=== PATIENT | female | born 1950 | race Caucasian/White ===

== ENCOUNTER 2016-09-21 16:43 | Observation (INO) | payer OTHER ==
--- NOTE | 2016-09-21 16:50 | EDPHY ---
H & P HPI/ROS: CHIEF COMPLAINT: Chest pain HISTORY OF PRESENT ILLNESS: The patient is a 65 year old female who comes to the ED directly from post-op with chest pain. The patient had shoulder surgery today. When she woke up from anesthesia at 1515 she felt a felt like "there was an elephant on my chest". The cp continued during her postop recovery and lasted 20+ minutes. EKG was performed and is normal. She reports no other associated symptoms. She currently feels asymptomatic, The patient has had a normal stress test in the past. Cardiac risk factors negative. REVIEW OF SYSTEMS: A comprehensive 10 point review of systems is otherwise negative aside from elements mentioned in the history of present illness. Past Medical/Surgical History: Shoulder surgery today. Graves disease. Hemochromatosis. Social History: . Physical Exam: General Appearance: Alert, pleasant Eyes: Pupils equal and round, no conjunctival pallor or injection ENT, Mouth: Mucous membranes moist Neck: Normal inspection Respiratory: Lungs are clear to auscultation anteriorly Cardiovascular: Regular rate and rhythm Gastrointestinal: Abdomen is soft and non-tender Neurological: A&O, nonfocal, normal gait Skin: Warm and dry, no rash Extremities: left shoulder in sling Psychiatric: anxious Constitutional: Initial Vital Signs Heart Rate 78 09/21/16 17:02 Respiratory Rate 18 09/21/16 17:02 Blood Pressure 182/81 H 09/21/16 17:02 O2 Sat (%) 97 09/21/16 17:02 O2 Delivery Mode Nasal Cannula O2 (L/minute) 2 Allergies/Adverse Reactions: Sulfa (Sulfonamide Antibiotics) Allergy (Verified 09/21/16 17:00) Home Medications: Medication Instructions Recorded Albuterol Sulfate [Proair Hfa] 1 - 2 puffs IH Q4H PRN 09/21/16 Levothyroxine [Synthroid 100 mcg 100 mcg PO DAILY06 09/21/16 (*)] Liothyronine Sodium 5 mcg PO DAILY 09/21/16 oxyCODONE HCL [Oxycodone HCl] 5 mg PO Q6H PRN 09/21/16 Medical Decision Making - Diagnostics EKG Interpretation: The 12 lead EKG was interpreted by myself. See hard copy and/or "tracemaster" electronic copy for interpretation: Sinus rhythm. Left ventricular hypertrophy. Borderline prolonged QT interval. ED Course/Re-evaluation: The patient comes to the ED from post-operative shoulder surgery. She woke up at 1515 from the anesthesia and was complaining of chest pain. EKG was performed and is normal. The patient had no associated symptoms. She currently feels asymptomatic. Plan to check troponin, CBC, and BMP. Chest x-ray is pending. Repeat EKG was ordered. X-ray of the chest was obtained and reveals NAD. I viewed the images myself on the PACS system. Troponin is normal. Plan to admit for r/o ACS. I consulted with the hospitalist , the patient will be admitted to Dr. Abel. Differential Diagnosis: includes though not limited to ACS, PE, pneumonia, PTX - Data Points Laboratory Results: Laboratory Results 09/21/16 17:11 09/21/16 17:11 Medications Given: Discontinued Medications [facility]othy[facility]) [facility] Stop: 03/21/17 05:59 Last Admin: 09/22/16 09:39 Dose: Not Given Liothyronine Sodium (Cytomel) 5 mcg PO DAILY [facility] Stop: 03/20/17 22:20 Last Admin: 09/22/16 09:39 Dose: 5 mcg Departure - Departure Disposition: [facility] Inpatient Acute Clinical Impression: Chest pain Qualifiers: Chest pain type: unspecified Qualified Code(s): R07.9 - Chest pain, unspecified Condition: Fair Report Scribed for: Bailey Nichols Report Scribed by: Ida Castle Date of Report: 09/21/16 Time of Report: 16:50 Physician Review and Approval Statement: 09/21/16 16:50 Portions of this note were transcribed by a lpn medical assistant. I personally performed the history, physical exam, and medical decision-making; and confirmed the accuracy of the information in the transcribed note.
--- NOTE | 2016-09-21 17:25 | CPEKG ---
Heart Rate: 81 RR Interval: 741 P-R Interval: 148 QRSD Interval: 106 QT Interval: 436 QTC Interval: 506 P [place]: 44 QRS [place]: -25 T Wave [place]: 71 EKG Severity - ABNORMAL ECG - EKG Impression: SINUS RHYTHM EKG Impression: INCOMPLETE RBBB AND LAFB EKG Impression: PROBABLE LEFT VENTRICULAR HYPERTROPHY EKG Impression: BORDERLINE PROLONGED QT INTERVAL Electronically Signed By: Brennan Angulo 22-Sep-2016 09:03:43
[2016-09-21 17:32] LABS: % IMMATURE GRANULYOCYTES 0.5 % (0.0-1.1); ABSOLUTE IMMATURE GRANULOCYTES 0.04 10^3/uL (0.00-0.10); ADD DIFF? NO; ADD MORPH? NO; ADD SCAN? NO; ATYPICAL LYMPHOCYTE FLAG 0 (0-99); FRAGMENT RBC FLAG 0 (0-99); HEMATOCRIT 46.7 % (38.0-47.0); HEMOGLOBIN 16.5 g/dL (12.6-16.3); LEFT SHIFT FLG 0 (0-99); LIPEMIA HEMOLYSIS FLAG 90 (0-99); MEAN CELL HEMOGLOBIN 30.8 pg (27.9-34.1); MEAN CELL HEMOGLOBIN CONCENTR. 35.3 g/dL (32.4-36.7); MEAN CELL VOLUME 87.3 fL (81.5-99.8); MEAN PLATELET VOLUME 9.5 fL (8.7-11.7); PLATELET CLUMPS FLAG 20 (0-99); PLATELET COUNT 242 10^3/uL (150-400); RED BLOOD CELL COUNT 5.35 10^6/uL (4.18-5.33); RED CELL DISTRIBUTION WIDTH 12.9 % (11.5-15.2)
[2016-09-21 18:04] LABS: ANION GAP 16 mEq/L (8-16); CARBON DIOXIDE 18 mEq/l (22-31); CHLORIDE 105 mEq/L (97-110); CREATININE 0.7 mg/dL (0.6-1.0); GLOMERULAR FILTRATION RATE > 60; GLUCOSE 144 mg/dL (70-100); POTASSIUM 3.6 mEq/L (3.5-5.2); SODIUM 139 mEq/L (134-144)
[2016-09-21 18:16] LABS: TROPONIN I < 0.012 ng/mL (0-0.034)
[2016-09-21] MEDS ORDERED: ONDANSETRON 4 MG/2 ML VIAL IVP PRN (21:14)
[2016-09-21] MEDS ORDERED: ONDANSETRON DISINTEGRATING 4 MG TAB PO PRN (21:14)
[2016-09-21] MEDS ORDERED: ACETAMINOPHEN 325 MG TAB PO PRN (21:14)
[2016-09-21] MEDS ORDERED: oxyCODONE IR 5 MG TAB PO PRN (21:17)
[2016-09-21] MEDS ORDERED: ALBUTEROL 60 PUFFS/8 GM MDI IH PRN ×2 (21:30)
[2016-09-21] MEDS ORDERED: LIOTHYRONINE SODIUM 5 MCG TAB PO SCH (22:21)
--- NOTE | 2016-09-21 23:09 | GHP ---
[f rep st] HISTORY AND PHYSICAL DATE OF ADMISSION: 09/21/2016 CHIEF COMPLAINT: Chest pressure. HISTORY OF PRESENT ILLNESS: Patient is a 65-year-old female with history of hemochromatosis, hypothyroidism, who came to the emergency room directly from postop with chest pain. Patient underwent left shoulder surgery today, without complication. When she awoke from anesthesia at 1515, she felt a heavy pressure , like an elephant on her chest. She denied any radiation of that pressure. No associated diaphoresis, nausea, vomiting, or shortness of breath. She is uncertain how long it lasted because she was groggy. She is currently chest pain free. She normally exercises 3 times a week. She walks in the pool, without chest pain or shortness of breath. She states that she had a nuclear stress test approximately a year ago; that was negative per her report. REVIEW OF SYSTEMS: I completed a 10-point review of systems, negative except as noted in HPI. PAST MEDICAL HISTORY: 1. Hemochromatosis. 2. Graves disease. PAST SURGICAL HISTORY: Thyroid ablation. x4. Cystocele repair. Hysterectomy. Fibroidectomy. Right shoulder surgery. FAMILY HISTORY: Paternal grandmother with heart disease. Maternal grandfather with heart disease. SOCIAL HISTORY: Lives in [place], has 3 children. No illicits, tobacco or alcohol. ALLERGIES: Allergic to sulfas. HOME MEDICATIONS: Oxycodone 5 mg q.6 hours p.r.n. Cytomel 5 mcg daily. Synthroid 100 mcg daily. Albuterol as needed. PHYSICAL EXAMINATION: VITAL SIGNS: Temperature 36.8, blood pressure 161/85, heart rate 96, respirations 18, 94% on room air. GENERAL: Patient is lying in bed in no acute distress. HEENT: PERRLA. EOMI. Oropharynx clear. CV: Regular rate and rhythm. No murmurs, gallops or rubs. LUNGS: Clear to auscultation bilaterally. ABDOMEN: Soft, nontender, nondistended. Positive bowel sounds. : No suprapubic tenderness. MUSCULOSKELETAL: Left shoulder in sling with ice pack. NEURO: 2 through 12 intact. PSYCH: Alert and oriented x3. LABORATORY DATA: WBC is 8, hemoglobin 16, hematocrit 46, platelets 242. Sodium 139, potassium 3.6, chloride 105, carbon dioxide 18, creatinine 0.7, glucose 144, calcium 10. Troponin less than 0.012. Chest x-ray personally reviewed by me: Clear. No evidence of effusion or opacity. Incomplete right bundle branch block. LVH. ASSESSMENT AND PLAN: 1. Chest pressure: Differential includes acute coronary syndrome versus musculoskeletal versus gastroesophageal reflux disease. Initial troponin and EKG were negative for ischemia. Patient is currently pain free. She exercises on a normal basis without chest pain or shortness of breath. She reports a negative nuclear stress within the last 2 years. Will repeat troponin and EKG. If negative, can discharge home tomorrow. If symptoms recur, she should follow up with her PCP. 2. Hemochromatosis: Followed by Dr. Cline. 3. Left shoulder repair: Per Orthopedics. 4. History of Graves disease: Continue home medications. 5. Diet: Regular. 6. Deep venous thrombosis prophylaxis: Ambulatory. 7. Disposition: Patient warrants observation admission given acute chest pressure concerning for possible acute coronary syndrome, to repeat EKG and monitor on telemetry. /[id number]/MODL MTDD
[2016-09-22] MEDS ORDERED: LEVOTHYROXINE 100 MCG TAB PO SCH (06:00)
[2016-09-22 07:48] VITALS: BP 159/78; PULSE 77; RESP 20; TEMP 98.7; O2SAT 95
[2016-09-22] MEDS ORDERED: LIOTHYRONINE SODIUM 5 MCG TAB PO SCH (09:00)
--- NOTE | 2016-09-22 11:15 | GDS ---
[f rep st] DISCHARGE SUMMARY DIAGNOSES: 1. Chest pain. 2. Rotator cuff surgery yesterday. 3. History of hemochromatosis. 4. 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 5. Erythrocythemia. HOSPITAL COURSE: A 65-year-old female who underwent left shoulder rotator cuff surgery yesterday. When she awoke from anesthesia she had the feeling of chest pressure. This was fleeting and quite t ransient. She has a nonischemic EKG that does show 2 incomplete blocks. She had negative cardiac e nzymes. Telemetry showed no arrhythmias overnight. She has had trouble with anesthesia in the past . I think that this is more likely an anesthesia reaction than ACS. She did have a stress test abo ut 2 years ago. This was normal and was a nuclear study. I think it is safe to discharge her back to the care of her primary care physician with recommendation for a relatively expedient outpatient stress test. I have counseled her that if she has any recurrence of her chest pain that she should, emergently back to the ED. She and her are comfortable with this plan. /[id number]/MODL
== END 2016-09-22 11:29 | disposition home or self-care (01) ==
LOC: EDUNIT# → F2W 20:01
PROVIDERS: ADMIT Internal Medicine; ATTEND Student in an Organized Health Care Education/Training Program
PROC: 0RNH4ZZ Release Left Acromioclavicular Joint, Percutaneous Endoscopic Approach (ICD-10-PCS; principal; 2016-09-21)
PROC: 0LQ24ZZ Repair Left Shoulder Tendon, Percutaneous Endoscopic Approach (ICD-10-PCS; principal; 2016-09-21)
DX: R07.89 Other chest pain (principal); I45.2 Bifascicular block; M75.122 Complete rotator cuff tear or rupture of left shoulder, not specified as traumatic; E05.00 Thyrotoxicosis with diffuse goiter without thyrotoxic crisis or storm; E83.119 Hemochromatosis, unspecified; Z88.2 Allergy status to sulfonamides
CPT/HCPCS: 29826; 29827; 71010; 93005; 97165; 99285; G0378